=== PATIENT | female | born 2005 | race Two or more races ===

== ENCOUNTER 2023-12-17 14:25 | Outpatient (CLI) | payer OTHER | END 2023-12-17 14:27 | disposition home or self-care (01) | LOC: PRENATAL 14:25 | PROVIDERS: ATTEND Obstetrics & Gynecology Maternal & Fetal Medicine | DX: O35.3XX0 Maternal care for (suspected) damage to fetus from viral disease in mother, not applicable or unspecified (principal); O44.00 Complete placenta previa NOS or without hemorrhage, unspecified trimester; Z3A.20 20 weeks gestation of pregnancy ==

== ENCOUNTER 2024-04-22 07:16 | Inpatient (IN) | payer OTHER ==
[~2024-04-22] VITALS: Ht 167.6 cm; Wt 73.0 kg
[2024-04-22] MEDS ORDERED: OXYTOCIN 500 ML IV SCH (07:45)
[2024-04-22 08:06] LABS: HEMATOCRIT 36.5 % (36.0-45.00); HEMOGLOBIN 12.3 g/dL (12.0-15.00); MEAN CELL VOLUME 87.6 fL (80.00-100.00); MEAN CORPUSCULAR HEMOGLOBIN 29.5 pg (27.00-32.0); MEAN CORPUSCULAR HGB CONC 33.7 g/dl (32.0-36.0); PH,URINE 6.5 (5.0-8.0); PLATELET COUNT 352 K/uL (150-450); RED BLOOD COUNT 4.17 M/uL (4.00-6.00); RED CELL DISTRIBUTION WIDTH 14.8 % (11.5-14.5); URINE APPEARANCE Clear; URINE BILIRRUBIN Negative (NEGATIVE); URINE BLOOD Moderate; URINE COLOR Yellow; URINE GLUCOSE Negative (NEGATIVE); URINE LEUKOCYTE Moderate; URINE NITRATE Negative; URINE PROTEIN Negative (NEGATIVE)
[2024-04-22 08:07] LABS: URINE BACTERIA 870.6 uL (0.0-1933); URINE EPITHELIAL CELLS 17.7 uL (0.0-38.8); URINE RBC 7.7 uL (0.0-20.8)
[2024-04-22 08:31] LABS: INR < 0.93; PARTIAL THROMBOPLASTIN TIME 27.4 SECONDS (22.0-34.0); PROTHROMBIN TIME 9.6 SECONDS (9.0-11.5)
[2024-04-22 09:10] LABS: ALBUMIN 2.9 gm/dL (3.4-5.0); BILIRUBIN TOTAL 0.28 mg/dL (0.3-1.2); CALCIUM 9.5 mg/dL (8.5-10.1); CREATININE SERUM 0.57 mg/dL (0.55-1.02); GFR 133.89; GLOBULINA 4.2 G/DL (2.4-3.5); POTASSIUM 4.32 mEq/L (3.5-5.1); TOTAL PROTEIN 7.1 gm/dL (6.4-8.2)
[2024-04-22] MEDS ORDERED: MEPERIDINE HCL/PF 50 MG/ML VIAL IV ONE (11:30)
[2024-04-22] MEDS ORDERED: PROMETHAZINE HCL 50 MG/ML AMPUL IV ONE (11:30)
[2024-04-22] MEDS ORDERED: MEPERIDINE HCL/PF 25 MG/ML VIAL IV ONE (12:00)
[2024-04-22] MEDS ORDERED: PROMETHAZINE HCL 25 MG/ML AMPUL IV ONE (12:00)
[2024-04-22] MEDS ORDERED: IBUprofen 800 MG TABLET PO PRN (13:30)
[2024-04-22] MEDS ORDERED: RINGERS SOLUTION,LACTATED 1,000 ML IV SCH (13:30)
[2024-04-22] MEDS ORDERED: OXYTOCIN 1,000 ML IV SCH (13:30)
[2024-04-22] MEDS ORDERED: CHLORHEXIDINE GLUCONATE 120 ML BOTTLE TOP ONE (13:30)
[2024-04-22] MEDS ORDERED: ERYTHROMYCIN BASE 1 GM TUBE OP ONE (13:30)
[2024-04-22] MEDS ORDERED: LIDOCAINE HCL 1% 10ML VIAL IJ ONE (13:30)
[2024-04-24] MEDS ORDERED: NAPR500T14 PO (10:08)
== END 2024-04-24 12:14 | disposition home or self-care (01) | DRG 807 ==
LOC: OB/GYN 07:16 → LDR 07:16 → OB/GYN 14:33
PROVIDERS: ADMIT Obstetrics & Gynecology; ATTEND Obstetrics & Gynecology
PROC: 10E0XZZ Delivery of Products of Conception, External Approach (ICD-10-PCS; principal; 2024-04-22)
PROC: 4A1HXCZ Monitoring of Products of Conception, Cardiac Rate, External Approach (ICD-10-PCS; 2024-04-22)
DX: O80 Encounter for full-term uncomplicated delivery (principal); Z37.0 Single live birth; Z3A.38 38 weeks gestation of pregnancy; Z20.822 Contact with and (suspected) exposure to COVID-19